=== PATIENT | male | born 1995 | race American Indian/Alaskan Native ===

== ENCOUNTER 2017-04-29 22:37 | Emergency (ER) | payer SELFPAY ==
[2017-04-30] MEDS ORDERED: MOTRIN PO ONE (00:02)
[2017-04-30 01:09] LABS: Bilirubin,Urine NEG (Negative); Blood,Urine NEG (Negative); Ketones,Urine 20 mg/dL (Negative); Leukocyte Esterase,Urine NEG (Negative); Mucus,Urine 3+ /HPF; Nitrite,Urine NEG (Negative)
[2017-04-30 01:57] VITALS: BP 115/75
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
== END 2017-04-30 01:57 | disposition home or self-care (01) ==
LOC: ED 22:37
DX: R10.9 Unspecified abdominal pain (principal); F12.10 Cannabis abuse, uncomplicated
CPT/HCPCS: 81001

== ENCOUNTER 2019-08-18 19:08 | Emergency (ER) | payer OTHER ==
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
[2019-08-18 22:56] VITALS: BP 112/72
== END 2019-08-18 22:56 | disposition home or self-care (01) ==
LOC: ED 19:08
DX: S06.0X0A Concussion without loss of consciousness, initial encounter (principal); Z91.018 Allergy to other foods; Z79.899 Other long term (current) drug therapy; V87.7XXA Person injured in collision between other specified motor vehicles (traffic), initial encounter; Y93.89 Activity, other specified; Y92.410 Unspecified street and highway as the place of occurrence of the external cause; Y99.8 Other external cause status
CPT/HCPCS: 70450